=== PATIENT | female | born 1965 | race Caucasian/White ===

== ENCOUNTER 2019-02-18 11:11 | Emergency (ER) | payer BC ==
[~2019-02-18] VITALS: Ht 160 cm; Wt 78.1 kg
[~2019-02-18 11:11] MED LIST: ALPR0.5T9 PO; ARNICA MONTANA PO; BUPR150T26 PO; CHOL2000 PO; CYAN100019 PO; CYCL-394 PO; FLUT16SP26 NAS; GINK60TA7 PO; IBUP-1984 PO; KRIL1CAP29; LACT1CAP65 PO; MELA10TA PO; METH20TA40 PO; MONT10TA24 PO; OXCARBAZEPINE PO; PRAV20TA4 PO; PRAZ1CAP5 PO; PREN-75 PO; TEMA15CA PO; UBIQ100C3 PO; VORT5TAB PO; [UNRECOGNIZED DRUG - OTHER] PO; [UNRECOGNIZED DRUG - OTHER] PO; [UNRECOGNIZED DRUG - OTHER] PO; [UNRECOGNIZED DRUG - OTHER] PO
[2019-02-18] MEDS ORDERED: normal saline 1000ML IV soln IVB ONE (12:25)
[2019-02-18] MEDS ORDERED: proCHLORperazine 10 MG/2 ml inj IV ONE (12:25)
[2019-02-18 12:28] LABS: BASOPHILS # (AUTO) 0.1 X10'3 (0-0.2); BASOPHILS % (AUTO) 1.1 % (0-1); EOSINOPHILS # (AUTO) 0.1 X10'3 (0-0.9); EOSINOPHILS % (AUTO) 1.3 % (0-6); HEMATOCRIT 47.6 % (35.0-45.0); HEMOGLOBIN 16.3 g/dl (12.0-16.0); LYMPHOCYTES # (AUTO) 1.5 X10'3 (1.1-4.8); LYMPHOCYTES % (AUTO) 28.2 % (21-51); MEAN CORPUSCULAR HEMOGLOBIN 33.1 PG (27.0-31.0); MEAN CORPUSCULAR HGB CONC 34.3 g/dL (33.0-36.5); MEAN CORPUSCULAR VOLUME 96.5 FL (78-98); MEAN PLATELET VOLUME 9.1 FL (7.4-10.4); MONOCYTES % (AUTO) 18.1 % (2-12); NEUTROPHILS # (AUTO) 2.8 X10'3 (1.8-7.7); NEUTROPHILS % (AUTO) 51.3 % (42-75); PLATELET COUNT 169 X10'3 (140-440); RED BLOOD COUNT 4.93 X10'6 (4.20-5.60); RED CELL DISTRIBUTION WIDTH 12.3 % (11.5-14.5); WHITE BLOOD COUNT 5.4 X10'3 (4.5-11.0)
[2019-02-18 12:45] LABS: ALANINE AMINOTRANSFERASE 38 U/L (12-78); ALBUMIN 3.5 G/DL (3.4-5.0); ALKALINE PHOSPHATASE 63 IU/L (46-116); ANION GAP 10 (8-16); ASPARTATE AMINO TRANSFERASE 15 U/L (10-37); BILIRUBIN,TOTAL 0.6 MG/DL (0.1-1.0); BLOOD UREA NITROGEN 18 MG/DL (7-18); BUN/CREATININE RATIO 21.2 (6.6-38.0); CALCIUM 8.2 MG/DL (8.5-10.1); CHLORIDE 102 MMOL/L (99-107); CREATININE 0.85 MG/DL (0.40-0.90); GLUCOSE 94 MG/DL (70-104); SODIUM 138 MMOL/L (135-145); TOTAL CARBON DIOXIDE 25.7 MMOL/L (24-32); TOTAL PROTEIN 6.9 G/DL (6.4-8.2); eGFR 70 ML/MIN
[2019-02-18 13:40] LABS: TOTAL CELLS COUNTED 100
[2019-02-18 13:51] LABS: PLATELET ESTIMATE NORMAL
[2019-02-18 14:51] LABS: CLARITY,URINE CLEAR (Clear); COLOR,URINE STRAW (Yellow); GLUCOSE, URINE NEGATIVE (Neg); KETONES,URINE NEGATIVE (Neg); LEUKOCYTE ESTERASE ,URINE NEGATIVE (Neg); NITRITES, URINE NEGATIVE (Neg); OCCULT BLOOD,URINE LARGE (Neg); PH,URINE 6.5 (4.8-8.0); PROTEIN,URINE NEGATIVE (Neg); UROBILINOGEN,URINE 0.2 E.U/dL (0.2-1.0)
[2019-02-18 14:55] LABS: UA COLLECTION TYPE OTHER
[2019-02-18 14:58] LABS: BACTERIA,URINE 2+ /HPF (Neg); MUCUS STRANDS NONE SEEN /LPF (Neg); SQUAMOUS EPITHELIAL CELL,UR MODERATE /LPF (FEW); WBC,URINE 0-4 /HPF (0-4)
[2019-02-18 15:50] VITALS: BP 113/60
== END 2019-02-18 15:53 | disposition home or self-care (01) ==
LOC: ER 11:12
DX: R11.2 Nausea with vomiting, unspecified (principal); Z87.442 Personal history of urinary calculi; Z98.890 Other specified postprocedural states; Z88.6 Allergy status to analgesic agent; Z88.5 Allergy status to narcotic agent; Z79.899 Other long term (current) drug therapy
CPT/HCPCS: 36415; 80053; 81001; 85025; 96361; 96374; 99283; J0780; J7030

== ENCOUNTER 2019-12-29 13:52 | Emergency (ER) | payer MEDICARE ==
[~2019-12-29] VITALS: Ht 160 cm; Wt 81.8 kg
[~2019-12-29 13:52] MED LIST changes: -MONT10TA24 PO; +MONT10TA26 PO
[2019-12-29 13:53] VITALS: BP 177/81
--- NOTE | 2019-12-29 15:03 | NUR ---
Pt seen, assessed, and treated by MD prior to any nursing intervention. See chart notes.
== END 2019-12-29 15:07 | disposition home or self-care (01) ==
LOC: ER 13:53
DX: Z00.00 Encounter for general adult medical examination without abnormal findings (principal); F41.9 Anxiety disorder, unspecified; F32.9 Major depressive disorder, single episode, unspecified; Z98.890 Other specified postprocedural states; Z88.5 Allergy status to narcotic agent; Z88.8 Allergy status to other drugs, medicaments and biological substances; Z79.899 Other long term (current) drug therapy
CPT/HCPCS: 99281

== ENCOUNTER 2021-08-12 08:49 | Emergency (ER) | payer OTHER ==
[~2021-08-12] VITALS: Ht 160 cm; Wt 72.7 kg
[~2021-08-12 08:49] MED LIST changes: +MONT-40 PO; -MONT10TA26 PO; +UBIQ100C2 PO; -UBIQ100C3 PO
[2021-08-12] MEDS ORDERED: ondansetron 4mg rapidly disintigrating tab PO ONE (11:25)
[2021-08-12] MEDS ORDERED: meclizine 12.5mg tablet PO ONE (11:25)
--- NOTE | 2021-08-12 12:43 | NUR ---
TO CT SCAN.
--- NOTE | 2021-08-12 13:53 | NUR ---
ROHINI BERRIOS AT BEDSIDE.
[2021-08-12] MEDS ORDERED: AMOX-117 PO (13:58)
[2021-08-12] MEDS ORDERED: CYCL-1 PO (13:58)
[2021-08-12] MEDS ORDERED: ONDA4TAB12 PO (13:58)
[2021-08-12 14:24] VITALS: BP 116/64
== END 2021-08-12 14:43 | disposition home or self-care (01) ==
LOC: ER 08:50
DX: S06.0X0A Concussion without loss of consciousness, initial encounter (principal); J32.9 Chronic sinusitis, unspecified; R11.0 Nausea; R42 Dizziness and giddiness; M54.2 Cervicalgia; F41.9 Anxiety disorder, unspecified; F32.A Depression, unspecified; Z87.442 Personal history of urinary calculi; Z98.890 Other specified postprocedural states; Z88.0 Allergy status to penicillin; Z88.5 Allergy status to narcotic agent; Z79.2 Long term (current) use of antibiotics; Z79.899 Other long term (current) drug therapy; W19.XXXA Unspecified fall, initial encounter; Y93.89 Activity, other specified; Y92.89 Other specified places as the place of occurrence of the external cause; Y99.8 Other external cause status
CPT/HCPCS: 70450; 99284; J8597

== ENCOUNTER 2021-11-08 12:14 | Emergency (ER) | payer OTHER ==
[~2021-11-08] VITALS: Ht 160 cm; Wt 63.6 kg
[~2021-11-08 12:14] MED LIST changes: +CYCL-1 PO; +ONDA4TAB12 PO
[2021-11-08] MEDS ORDERED: LORA-269 PO ×2 (17:47)
[2021-11-08] MEDS ORDERED: TRAZ-251 PO (17:47)
[2021-11-08] MEDS ORDERED: SERT-153 PO (17:47)
[2021-11-08 17:57] LABS: URINE HCG NEGATIVE (NEG)
[2021-11-08 18:05] LABS: URINE AMPHETAMINE SCREEN NEGATIVE (Neg); URINE BARBITUATE SCREEN NEGATIVE (Neg); URINE BENZODIAZEPINES SCREEN NEGATIVE (Neg); URINE CANNABINOID SCREEN NEGATIVE (Neg); URINE COCAINE SCREEN NEGATIVE (Neg); URINE METHADONE SCREEN NEGATIVE (Neg); URINE OPIATE SCREEN NEGATIVE (Neg); URINE PHENCYCLIDINE SCREEN NEGATIVE (Neg)
[2021-11-08 18:05] LABS: BASOPHILS # (AUTO) 0.1 X10'3 (0-0.2); BASOPHILS % (AUTO) 0.8 % (0-1); EOSINOPHILS # (AUTO) 0.1 X10'3 (0-0.9); EOSINOPHILS % (AUTO) 1.3 % (0-6); HEMATOCRIT 47.2 % (35.0-45.0); LYMPHOCYTES # (AUTO) 1.7 X10'3 (1.1-4.8); LYMPHOCYTES % (AUTO) 21.8 % (21-51); MEAN CORPUSCULAR HEMOGLOBIN 31.6 PG (27.0-31.0); MEAN CORPUSCULAR HGB CONC 33.9 g/dL (33.0-36.5); MEAN CORPUSCULAR VOLUME 93.1 FL (78-98); MONOCYTES % (AUTO) 13.4 % (2-12); NEUTROPHILS # (AUTO) 4.7 X10'3 (1.8-7.7); NEUTROPHILS % (AUTO) 62.7 % (42-75); PLATELET COUNT 140 X10'3 (140-440); RED BLOOD COUNT 5.07 X10'6 (4.20-5.60); RED CELL DISTRIBUTION WIDTH 12.5 % (11.5-14.5); WHITE BLOOD COUNT 7.6 X10'3 (4.5-11.0)
[2021-11-08] MEDS ORDERED: LORazepam 2 mg/ml vial IM ONE (18:05)
[2021-11-08 18:16] LABS: ALANINE AMINOTRANSFERASE 31 U/L (12-78); ALBUMIN 3.8 G/DL (3.4-5.0); ALBUMIN/GLOBULIN RATIO 1.2 (1.1-1.5); ALKALINE PHOSPHATASE 76 IU/L (46-116); ANION GAP 10 (8-16); ASPARTATE AMINO TRANSFERASE 17 U/L (10-37); BILIRUBIN,TOTAL 0.3 MG/DL (0.1-1.0); BLOOD UREA NITROGEN 14 MG/DL (7-18); BUN/CREATININE RATIO 21.5 (6.6-38.0); CALCIUM 9.2 MG/DL (8.5-10.1); CHLORIDE 105 MMOL/L (99-107); CREATININE 0.65 MG/DL (0.40-0.90); GLUCOSE 116 MG/DL (70-104); POTASSIUM 3.8 MMOL/L (3.5-5.1); SODIUM 140 MMOL/L (135-145); TOTAL CARBON DIOXIDE 25.2 MMOL/L (24-32); TOTAL PROTEIN 6.9 G/DL (6.4-8.2); eGFR > 90 ML/MIN
[2021-11-08 18:22] LABS: CLARITY,URINE SLIGHTLY CLOUDY (Clear); COLOR,URINE ORANGE (Yellow)
[2021-11-08 18:23] LABS: UA COLLECTION TYPE CLN CATCH MIDSTREAM
[2021-11-08 18:27] LABS: ETHANOL < 0.010 GM/DL (0.0-0.010)
[2021-11-08 18:41] LABS: CAL OXALATE CRYSTALS 2+ /HPF (NEGATIVE); MUCUS STRANDS MANY /LPF (Neg); SQUAMOUS EPITHELIAL CELL,UR MODERATE /LPF (FEW)
[2021-11-08 18:42] LABS: BACTERIA,URINE NONE SEEN /HPF (Neg); RBC,URINE NONE SEEN /HPF (0-2); WBC,URINE 0-4 /HPF (0-4)
[2021-11-08] MEDS ORDERED: OLANZapine 5mg rapidly disint. tablet PO ONE (22:05)
--- NOTE | 2021-11-08 22:51 | NUR ---
PT brought back to ER overflow, changed into green scrubs, belongings inventoried.
--- NOTE | 2021-11-08 22:54 | NUR ---
PT states she has been having thoughts of knives and sharp objects and it has become an obsessive thought process for her, which scares her. She has been hospitalized before many years prior she reports in [facility] and it greatly helped her. She says she is taking a lot of different medications and wonders if this might have something to do with her obsessive thoughts. She denies being suicidal.
--- NOTE | 2021-11-08 22:56 | NUR ---
PT given PO zyprexa, educated on medication, pt verbalized understanding. PT given grahm crackers and milk. PT reading bible in bed until she feels tired
--- NOTE | 2021-11-09 00:30 | NUR ---
PT up to use the restroom
[2021-11-09] MEDS ORDERED: LORazepam 1 MG tablet PO PRN (00:50)
--- NOTE | 2021-11-09 01:57 | NUR ---
PACKET FAXED TO [facility]
--- NOTE | 2021-11-09 02:30 | NUR ---
pt sleeping on R side RR 14
[2021-11-09 05:53] VITALS: BP 110/67
--- NOTE | 2021-11-09 05:58 | NUR ---
educated pt on process of 1798 and [facility] assessment after she asked what would be happening today
--- NOTE | 2021-11-09 06:30 | NUR ---
Patient sleeping in Bed #23 at this time. Appears comfortable.
--- NOTE | 2021-11-09 07:00 | NUR ---
Patient awake in her bed at this time. Patient ambulated to the bathroom without assistance, and voided urine. Patient returned to her bed and her Medication Reconciliation Record reviewed with the patient at this time. Went to receive assistance from Rory Garcia RN in the ED to assist with updating the Medication Reconciliation. Chayo gave to , who signed and updated the Med Rec, and it was then faxed to the Pharmacy. Patient reports that she would like to go to [facility] to receive care from the Psychiatrist and he can adjust her medications. Medications administered per Medication
[2021-11-09] MEDS ORDERED: [UNRECOGNIZED DRUG - OTHER] PO SCH ×2 (07:30→12:30)
[2021-11-09] MEDS ORDERED: non-formulary drug (Ubiquinol 100 MG) PO SCH (08:00)
[2021-11-09] MEDS ORDERED: cyanocobalamin 500mcg tablet PO SCH (08:00)
[2021-11-09] MEDS ORDERED: methylphenidate 5mg tablet PO SCH (08:00)
[2021-11-09] MEDS ORDERED: sertraline 50mg tablet PO SCH (08:00)
[2021-11-09] MEDS ORDERED: GINKO BILOBA PO SCH (08:00)
[2021-11-09] MEDS ORDERED: [UNRECOGNIZED DRUG - OTHER] PO SCH (08:00)
[2021-11-09] MEDS ORDERED: cholecalciferol (vitamin D3) 1,000 unit (25mcg) tablet PO SCH (08:00)
[2021-11-09] MEDS ORDERED: ibuprofen tablet 400 MG TABLET PO SCH (08:00)
[2021-11-09] MEDS ORDERED: oxcarbazepine 150mg tablet PO SCH (08:00)
[2021-11-09] MEDS ORDERED: lactobacillus rhamnosus 10,000 MMU CELLS/CAPSULE PO SCH (08:00)
[2021-11-09] MEDS ORDERED: multivitamins, therapeutics tablet PO SCH (08:00)
[2021-11-09] MEDS ORDERED: ARNICA MONTANA PO SCH (08:00)
[2021-11-09] MEDS ORDERED: [UNRECOGNIZED DRUG - OTHER] PO SCH (08:00)
[2021-11-09] MEDS ORDERED: atorvastatin 10mg tablet PO SCH (08:00)
[2021-11-09] MEDS ORDERED: montelukast 10mg tablet PO SCH (08:00)
[2021-11-09] MEDS ORDERED: fluticasone nasal spray 16GM bottle NS SCH (08:00)
[2021-11-09] MEDS ORDERED: [UNRECOGNIZED DRUG - OTHER] PO SCH (08:00)
[2021-11-09] MEDS ORDERED: cyclobenzaprine 10mg tablet PO SCH (08:00)
[2021-11-09] MEDS ORDERED: AMOX-117 PO (08:36)
[2021-11-09] MEDS ORDERED: ESTRADIOL TP (08:36)
[2021-11-09] MEDS ORDERED: TESTERONE TP (08:36)
[2021-11-09] MEDS ORDERED: PROG100C11 PO (08:49)
[2021-11-09] MEDS ORDERED: amox tr/potassium clavulanate 875/125mg TAB PO SCH (09:25)
[2021-11-09] MEDS ORDERED: PUMP VG SCH (10:00)
[2021-11-09] MEDS ORDERED: TESTOSTERONE VG SCH (10:00)
[2021-11-09] MEDS ORDERED: DHEA VG SCH (10:00)
[2021-11-09] MEDS ORDERED: ESTRADIOL VG SCH (10:00)
--- NOTE | 2021-11-09 10:15 | NUR ---
Spoke with the patient and informed her that I made a telephone call to [facility] to inform Filipe, Charge Nurse that patient would like to come to [facility] after Familia from [facility] can send a packet to him. Patient's at bedside at this time.
--- NOTE | 2021-11-09 10:21 | NUR ---
Pt sitting up on the edge of the bed visiting with her at bedside.
--- NOTE | 2021-11-09 12:39 | NUR ---
Patient's still visiting at her bedside. No complaints. Patient ate lunch and then was up to the bathroom. Familia completed intake with the patient and her present. Patient reports that she has been experiencing "thoughts" that involve using sharp items on her , her son and her grandchildren. Patient states that since she has been on Zoloft some of the "thoughts" have slightly resolved, but now she has "new thoughts" since then. Patient reports she was previously on Latuda for the past 7 months, and that is when she started experiencing the side effects of having sharp objects and using them with her family. Her Psychiatrist stopped the Latuda but then started her on Rexulti 0.25mg x3 days and had the same thoughts, so her MD stopped the Rexulti and started her on Zoloft. Patient reported she feels safe here and it has improved her depression.
[2021-11-09] MEDS ORDERED: progesterone, micronized 100mg capsule PO SCH (21:00)
[2021-11-09] MEDS ORDERED: LORazepam 1 MG tablet PO SCH (21:00)
[2021-11-09] MEDS ORDERED: traZODone 50mg tablet PO SCH (21:00)
[2021-11-09] MEDS ORDERED: prazosin 1mg capsule PO SCH (21:00)
[2021-11-09] MEDS ORDERED: Melatonin 10 MG PO SCH (21:00)
== END 2021-11-09 13:28 | disposition home or self-care (01) ==
LOC: ER 12:14
DX: F32.A Depression, unspecified (principal); F41.9 Anxiety disorder, unspecified; R45.851 Suicidal ideations; R45.850 Homicidal ideations; I10 Essential (primary) hypertension; Z87.442 Personal history of urinary calculi; Z98.890 Other specified postprocedural states; Z88.5 Allergy status to narcotic agent; Z88.8 Allergy status to other drugs, medicaments and biological substances; Z79.2 Long term (current) use of antibiotics; Z79.899 Other long term (current) drug therapy
CPT/HCPCS: 36415; 80053; 80305; 80320; 81001; 81025; 84443; 85025; 96372; 99285; J2060

== ENCOUNTER 2023-09-18 11:46 | Emergency (ER) | payer OTHER ==
[~2023-09-18] VITALS: Ht 161.3 cm; Wt 62.8 kg
[~2023-09-18 11:46] MED LIST changes: -ALPR0.5T9 PO; +AMOX-117 PO; -ARNICA MONTANA PO; -BUPR150T26 PO; -CYAN100019 PO; -CYCL-1 PO; -CYCL-394 PO; +ESTRADIOL TP; -FLUT16SP26 NAS; -GINK60TA7 PO; -IBUP-1984 PO; -KRIL1CAP29; +LORA-269 PO; -MELA10TA PO; +MELATONIN10 MG PO; -METH20TA40 PO; -MONT-40 PO; -ONDA4TAB12 PO; -OXCARBAZEPINE PO; -PRAV20TA4 PO; -PREN-75 PO; +PROG100C11 PO; -TEMA15CA PO; +TESTERONE TP; +TRAZ-251 PO; -UBIQ100C2 PO; -VORT5TAB PO; -[UNRECOGNIZED DRUG - OTHER] PO; -[UNRECOGNIZED DRUG - OTHER] PO; -[UNRECOGNIZED DRUG - OTHER] PO; -[UNRECOGNIZED DRUG - OTHER] PO
[2023-09-18 12:10] LABS: BILIRUBIN,URINE NEGATIVE (Neg); CLARITY,URINE CLEAR (Clear); COLOR,URINE YELLOW (Yellow); GLUCOSE, URINE NEGATIVE (Neg); KETONES,URINE NEGATIVE (Neg); LEUKOCYTE ESTERASE ,URINE NEGATIVE (Neg); NITRITES, URINE NEGATIVE (Neg); OCCULT BLOOD,URINE NEGATIVE (Neg); PROTEIN,URINE NEGATIVE (Neg); UROBILINOGEN,URINE 0.2 E.U/dL (0.2-1.0)
[2023-09-18 12:13] LABS: UA COLLECTION TYPE CLN CATCH MIDSTREAM
[2023-09-18 12:53] LABS: BASOPHILS # (AUTO) 0.1 X10'3 (0-0.2); EOSINOPHILS # (AUTO) 0.1 X10'3 (0-0.9); EOSINOPHILS % (AUTO) 0.9 % (0-6); HEMATOCRIT 46.1 % (35.0-45.0); HEMOGLOBIN 15.7 g/dl (12.0-16.0); LYMPHOCYTES # (AUTO) 1.8 X10'3 (1.1-4.8); LYMPHOCYTES % (AUTO) 27.5 % (21-51); MEAN CORPUSCULAR HEMOGLOBIN 32.1 PG (27.0-31.0); MEAN CORPUSCULAR HGB CONC 34.1 g/dL (33.0-36.5); MEAN CORPUSCULAR VOLUME 94.2 FL (78-98); MEAN PLATELET VOLUME 10.2 FL (7.4-10.4); MONOCYTES # (AUTO) 0.7 X10'3 (0-0.9); MONOCYTES % (AUTO) 10.9 % (2-12); NEUTROPHILS % (AUTO) 59.7 % (42-75); PLATELET COUNT 189 X10'3 (140-440); RED CELL DISTRIBUTION WIDTH 12.7 % (11.5-14.5); WHITE BLOOD COUNT 6.7 X10'3 (4.5-11.0)
[2023-09-18 13:05] LABS: ALBUMIN 3.8 G/DL (3.4-5.0); ANION GAP 7 (8-16); BLOOD UREA NITROGEN 13 MG/DL (7-18); BUN/CREATININE RATIO 21.3 (10.0-20.0); CHLORIDE 103 MMOL/L (99-107); CREATININE 0.61 MG/DL (0.40-0.90); GLUCOSE 86 MG/DL (70-104); POTASSIUM 3.9 MMOL/L (3.5-5.1); SODIUM 137 MMOL/L (135-145); THYROID STIMULATING HORMONE 0.45 ulU/ml (0.34-4.50); TOTAL CARBON DIOXIDE 26.8 MMOL/L (24-32); eCRCL 84 ML/MIN; eGFR > 90 ML/MIN
[2023-09-18 13:07] LABS: ETHANOL < 10 MG/DL (<10)
[2023-09-18 13:48] LABS: URINE HCG NEGATIVE (NEG)
[2023-09-18 14:02] LABS: URINE AMPHETAMINE SCREEN NEGATIVE (Neg); URINE BARBITUATE SCREEN NEGATIVE (Neg); URINE BENZODIAZEPINES SCREEN NEGATIVE (Neg); URINE CANNABINOID SCREEN NEGATIVE (Neg); URINE COCAINE SCREEN NEGATIVE (Neg); URINE METHADONE SCREEN NEGATIVE (Neg); URINE OPIATE SCREEN NEGATIVE (Neg); URINE PHENCYCLIDINE SCREEN NEGATIVE (Neg)
[2023-09-18] MEDS ORDERED: BENF150C PO (16:30)
[2023-09-18] MEDS ORDERED: CETI10CA PO (16:30)
[2023-09-18] MEDS ORDERED: ASCO100031 PO (16:30)
[2023-09-18] MEDS ORDERED: VITA-325 PO (16:30)
[2023-09-18] MEDS ORDERED: ALPH100C PO (16:30)
[2023-09-18] MEDS ORDERED: SELE200C PO (16:30)
[2023-09-18] MEDS ORDERED: CHOL100046 PO (16:30)
[2023-09-18] MEDS ORDERED: DIPH25CA83 PO (16:30)
[2023-09-18] MEDS ORDERED: LISD10CA PO (16:30)
[2023-09-18] MEDS ORDERED: VITA-290 PO (16:30)
[2023-09-18] MEDS ORDERED: COPP2CAP PO (16:30)
[2023-09-18] MEDS ORDERED: KRIL1CAP PO (16:30)
[2023-09-18] MEDS ORDERED: THEA200C PO (16:30)
[2023-09-18] MEDS ORDERED: S-AD200T8 (16:30)
[2023-09-18] MEDS ORDERED: EVEN500C4 PO (16:30)
[2023-09-18] MEDS ORDERED: LORazepam 1 MG tablet PO ONE (16:45)
[2023-09-18] MEDS: LORazepam 0.5 MG tablet PO ONE (17:15)
[2023-09-18] MEDS ORDERED: LISD20CA PO (17:27)
[2023-09-18] MEDS ORDERED: AMIT10TA6 PO (17:27)
[2023-09-18] MEDS ORDERED: LORA-268 PO (17:29)
[2023-09-18] MEDS ORDERED: THEA100C PO (17:30)
[2023-09-18] MEDS ORDERED: diphenhydrAMINE 25 MG/10 ML UD oral solution PO PRN (17:55)
[2023-09-18] MEDS: Melatonin 3mg tablet PO SCH (20:44)
[2023-09-18] MEDS: amitriptyline 10mg tablet PO SCH (20:44)
[2023-09-18] MEDS: amitriptyline 10mg tablet PO ONE (21:38)
[2023-09-18] MEDS: temazepam 15mg capsule PO ONE (22:13)
[2023-09-18 22:30] LABS: MAGNESIUM 2.1 MG/DL (1.5-2.4)
[2023-09-19] MEDS ORDERED: BENFOTIAMINE PO SCH (08:00)
[2023-09-19] MEDS ORDERED: CETIRIZINE HCL PO SCH (08:00)
[2023-09-19] MEDS: TESTOSTERONE PO SCH (08:14)
[2023-09-19] MEDS: ESTRIOL PO SCH (08:14)
[2023-09-19] MEDS: PRASTERONE PO SCH (08:14)
[2023-09-19] MEDS: ESTRADIOL PO SCH (08:14)
[2023-09-19] MEDS: cholecalciferol (vitamin D3) 1,000 unit (25mcg) tablet PO SCH (08:14)
[2023-09-19] MEDS: ascorbic acid 500mg tablet PO SCH (08:15)
[2023-09-19] MEDS: LORazepam 0.5 MG tablet PO PRN (09:10)
[2023-09-19] MEDS: amitriptyline 10mg tablet PO SCH (21:29)
[2023-09-19] MEDS ORDERED: PROGESTERONE 150 MG PO SCH (21:56)
[2023-09-19] MEDS: PROGESTERONE 150 MG PO SCH (22:11)
[2023-09-20 09:02] VITALS: BP 121/67; PULSE 87; TEMP 98; O2SAT 98
[2023-09-20 09:04] VITALS: RESP 16
== END 2023-09-20 13:30 ==
LOC: ER 11:47
DX: F32.A Depression, unspecified (principal); Z20.822 Contact with and (suspected) exposure to COVID-19; T50.905A Adverse effect of unspecified drugs, medicaments and biological substances, initial encounter; I10 Essential (primary) hypertension; Z73.6 Limitation of activities due to disability; Z91.018 Allergy to other foods; Z88.5 Allergy status to narcotic agent; Z79.899 Other long term (current) drug therapy; Y92.89 Other specified places as the place of occurrence of the external cause
CPT/HCPCS: 36415; 80048; 80305; 80320; 81003; 81025; 83735; 84443; 85025; 87811; 99285

== ENCOUNTER 2024-10-27 06:50 | Outpatient (CLI) | payer MEDICARE, MEDICAID ==
[~2024-10-27 06:50] MED LIST changes: +ALPH100C PO; +AMIT10TA6 PO; -AMOX-117 PO; +ASCO100031 PO; +BENF150C PO; +CETI10CA PO; +CHOL100046 PO; -CHOL2000 PO; +COPP2CAP PO; +DIPH25CA83 PO; +EVEN500C4 PO; +KRIL1CAP PO; +LISD20CA PO; +LORA-268 PO; -LORA-269 PO; -PRAZ1CAP5 PO; +S-AD200T8; +SELE200C PO; +THEA100C PO; -TRAZ-251 PO; +VITA-290 PO; +VITA-325 PO
[2024-10-27] MEDS ORDERED: LIDOcaine 1%/PF 5ML 10 MG/ML VIAL ONE (07:06)
[2024-10-27] MEDS ORDERED: LIDOcaine 1% 30ml preserv. free vial ONE (07:06)
[2024-10-27] MEDS ORDERED: GADOTERATE MEGLUMINE 7.5 MMOL/15 ML VIAL IV ONE (07:07)
--- NOTE | 2024-10-27 08:43 | RADIOLOGY REPORT ---
ANGIO ARTHROGRAM (A) Date: 10/27/2024 07:44 AM Clinical History: ARTHROGRAM Comparison: None Procedure: Verbal and written informed consent were obtained from the patient for the procedure of RIGHT HIP FELIZ NT fluoroscopically guided arthrogram, after the procedure, risks, and benefits of the procedure wer e explained to the patient. Risks include bleeding, infection, reaction to injected medications, and damage to surrounding anatomic structures. The patient's questions were answered. The patient's mo st recent medical history was reviewed. A time out was performed to verify the patient's name, date of , and correct location of the pro cedure, prior to initiation of the procedure. The patient was placed supine on the fluoroscopic table and the area overlying the RIGHT HIP JOINT w as prepped and draped in the usual sterile fashion. Approximately 7 ml of buffered 1% lidocaine were infused for local anesthesia. Under direct fluoroscopic guidance, a 22 gauge spinal needle was adva nced percutaneously into the RIGHT HIP JOINT . Approximately 10 ml of a mixture of 6 ml of bupivicai ne, 5 ml of Omnipaque 300 contrast, and 0.1 ml of gadolinium contrast were injected. A spot film was obtained to document placement of the contrast within the joint capsule. The needle was removed. The patient tolerated the procedure well. There were no immediate complications. Home-care instruct ions were reviewed with the patient prior to the patient's discharge from the fluoroscopy suite. The patient verbally affirmed understanding of these instructions. Impression: Technically successful fluoroscopically guided RIGHT HIP JOINT arthrogram. The patient was transpor amy to MRI for further imaging at the completion of the procedure. Procedure by Dr. Solo
--- NOTE | 2024-10-27 11:09 | RADIOLOGY REPORT ---
CLINICAL INFORMATION: 59 years old, Female; PAIN IN RIGHT HIP. TECHNIQUE: Multisequence multiplanar MRI images of the right hip were obtained after the uneventful intra-articular injection of dilute gadolinium contrast under fluoroscopic guidance. [facility] for details concerning the contrast injection. COMPARISON: Correlation made to same day arthrogram injection images. FINDINGS: BONES: No acute fracture or osteonecrosis. JOINT: Moderate joint space narrowing in both hips, right greater than left. Fraying of the anterior superior labrum of the right hip with suspected small tear. BURSAE: Mild edema and small amount of fluid in the trochanteric bursae bilaterally, left greater franc n right. TENDONS: Mild tendinosis of the distal gluteus medius and minimus tendons. Origins of the rectus femo ris tendon and hamstring tendons are intact. Distal insertion of the iliopsoas tendon is intact. MUSCLES: Normal muscle bulk. No significant atrophy. No evidence of muscle strain or tear. OTHER: Motion artifact limits evaluation on some sequences. IMPRESSION: 1. Fraying and suspected small tear of the anterior superior labrum of the right hip. 2. Moderate joint space narrowing in both hips, right greater than left. 3. Mild bilateral trochanteric bursitis, left greater than right. 4. Additional findings as described above.
== END 2024-10-27 23:59 | disposition home or self-care (01) ==
LOC: RAD 06:50
PROVIDERS: ATTEND Family Medicine Sports Medicine
DX: M25.551 Pain in right hip (principal); M77.9 Enthesopathy, unspecified; M76.891 Other specified enthesopathies of right lower limb, excluding foot; M70.62 Trochanteric bursitis, left hip; M70.61 Trochanteric bursitis, right hip
CPT/HCPCS: 27093; 73722; 77002; A9575; J2003; J3490